=== PATIENT | female | born 1965 | race Caucasian/White ===

== ENCOUNTER 2017-12-16 03:52 | Emergency (ER) | payer SELFPAY ==
[~2017-12-16] VITALS: Ht 167.6 cm; Wt 104.8 kg
[2017-12-16 04:33] LABS: URINE BILIRUBIN - DIPSTICK NEGATIVE (NEGATIVE); URINE BLOOD DIPSTICK NEGATIVE (NEGATIVE); URINE CLARITY SL CLOUDY; URINE COLOR YELLOW; URINE GLUCOSE - DIPSTICK NEGATIVE (NEGATIVE); URINE KETONE NEGATIVE (NEGATIVE); URINE LEUK ESTERASE NEGATIVE (NEGATIVE); URINE NITRITE - DIPSTICK NEGATIVE (Negative); URINE PH 5.5 (4.5-8.0); URINE PROTEIN - DIPSTICK NEGATIVE (NEG-TRACE); URINE SPECIFIC GRAVITY >=1.030; URINE UROBILINOGEN - DIPSTICK 0.2 E.U./dL (0.2)
[2017-12-16] MEDS ORDERED: FLEXERIL PO (05:25)
[2017-12-16] MEDS ORDERED: LORTAB 1010 MG PO (05:25)
[2017-12-16 05:56] VITALS: BP 130/66
== END 2017-12-16 05:56 | disposition home or self-care (01) | DRG 552 ==
LOC: ED 03:52
PROVIDERS: Emergency Medicine
DX: M54.31 Sciatica, right side (principal); M47.816 Spondylosis without myelopathy or radiculopathy, lumbar region; F32.9 Major depressive disorder, single episode, unspecified; F43.10 Post-traumatic stress disorder, unspecified; F41.9 Anxiety disorder, unspecified; Z98.84 Bariatric surgery status